=== PATIENT | male | born 1970 | race Two or more races ===

== ENCOUNTER 2019-05-06 12:41 | Emergency (ER) | payer OTHER ==
[~2019-05-06] VITALS: Ht 165.1 cm; Wt 89.8 kg
[~2019-05-06 12:41] MED LIST: DIOVAN40 MG; KETO10TA2 PO; TRAMADOL HCL-AP1 TAB PO
== END 2019-05-06 14:00 | disposition home or self-care (01) ==
LOC: ER 12:41
DX: M54.5 Low back pain (principal)

== ENCOUNTER 2019-05-19 14:05 | Outpatient (CLI) | payer OTHER | END 2019-05-19 14:20 | disposition home or self-care (01) | LOC: MRI 14:05 | DX: M54.5 Low back pain (principal) | CPT/HCPCS: 72148 ==

== ENCOUNTER 2020-11-09 15:19 | Emergency (ER) | payer OTHER ==
[~2020-11-09] VITALS: Ht 167.6 cm; Wt 86.2 kg
[2020-11-09] MEDS ORDERED: MICARDIS20 MG (15:43)
== END 2020-11-09 17:40 | disposition home or self-care (01) ==
LOC: ER 15:19
DX: S62.397A Other fracture of fifth metacarpal bone, left hand, initial encounter for closed fracture (principal); S61.422A Laceration with foreign body of left hand, initial encounter; G89.11 Acute pain due to trauma; M25.512 Pain in left shoulder; V49.88XA Car occupant (driver) (passenger) injured in other specified transport accidents, initial encounter; W22.11XA Striking against or struck by driver side automobile airbag, initial encounter; Y93.89 Activity, other specified; Y92.488 Other paved roadways as the place of occurrence of the external cause; Y99.8 Other external cause status

== ENCOUNTER 2020-11-12 11:03 | Outpatient (CLI) | payer OTHER ==
[~2020-11-12 11:03] MED LIST changes: +MICARDIS20 MG
== END 2020-11-12 11:06 | disposition home or self-care (01) ==
LOC: EKG 11:03
PROVIDERS: ATTEND Orthopaedic Surgery Hand Surgery
DX: I10 Essential (primary) hypertension (principal)

== ENCOUNTER 2020-11-16 06:20 | Day surgery (SDC) | payer OTHER | END 2020-11-16 13:15 | disposition home or self-care (01) | LOC: CIR.AMB 06:20 | PROVIDERS: ATTEND Orthopaedic Surgery Hand Surgery | DX: S62.337A Displaced fracture of neck of fifth metacarpal bone, left hand, initial encounter for closed fracture (principal); Z20.828 Contact with and (suspected) exposure to other viral communicable diseases ==

== ENCOUNTER → 2020-12-01 | Outpatient (CLI) | payer OTHER | END | disposition home or self-care (01) | LOC: RAD 10:51 | PROVIDERS: ATTEND Orthopaedic Surgery Hand Surgery | DX: M25.532 Pain in left wrist (principal) ==

== ENCOUNTER 2021-04-10 12:34 | Emergency (ER) | payer OTHER ==
[~2021-04-10] VITALS: Ht 175.3 cm; Wt 88.5 kg
== END 2021-04-10 15:27 | disposition home or self-care (01) ==
LOC: ER 12:34
DX: S42.291A Other displaced fracture of upper end of right humerus, initial encounter for closed fracture (principal); S40.021A Contusion of right upper arm, initial encounter; S50.01XA Contusion of right elbow, initial encounter; W18.39XA Other fall on same level, initial encounter; Y93.89 Activity, other specified; Y92.091 Bathroom in other non-institutional residence as the place of occurrence of the external cause; Y99.8 Other external cause status

== ENCOUNTER → 2021-04-11 10:03 | Outpatient (CLI) | payer OTHER | END | disposition home or self-care (01) | LOC: LAB 10:03 | PROVIDERS: ATTEND Orthopaedic Surgery | DX: D68.8 Other specified coagulation defects (principal); N39.0 Urinary tract infection, site not specified; D64.9 Anemia, unspecified; E88.9 Metabolic disorder, unspecified; A49.02 Methicillin resistant Staphylococcus aureus infection, unspecified site; E83.42 Hypomagnesemia; E03.9 Hypothyroidism, unspecified; Z13.1 Encounter for screening for diabetes mellitus; E55.9 Vitamin D deficiency, unspecified; Z03.818 Encounter for observation for suspected exposure to other biological agents ruled out ==

== ENCOUNTER 2021-04-12 15:08 | Day surgery (SDC) | payer OTHER | END 2021-04-12 21:30 | disposition home or self-care (01) | LOC: CIR.AMB 15:08 | PROVIDERS: ATTEND Orthopaedic Surgery | DX: S42.351A Displaced comminuted fracture of shaft of humerus, right arm, initial encounter for closed fracture (principal); S42.291A Other displaced fracture of upper end of right humerus, initial encounter for closed fracture; M75.41 Impingement syndrome of right shoulder; Z20.822 Contact with and (suspected) exposure to COVID-19 | CPT/HCPCS: 24516; 23412; 23130; C1776 ==

== ENCOUNTER → 2021-04-20 12:30 | Outpatient (CLI) | payer OTHER | END | disposition home or self-care (01) | LOC: RAD 12:30 | PROVIDERS: ATTEND Orthopaedic Surgery | DX: S42.351D Displaced comminuted fracture of shaft of humerus, right arm, subsequent encounter for fracture with routine healing (principal) ==

== ENCOUNTER 2021-05-03 12:46 | Outpatient (CLI) | payer OTHER | END 2021-05-03 15:38 | disposition home or self-care (01) | LOC: RAD 12:46 | PROVIDERS: ATTEND Orthopaedic Surgery | DX: M79.642 Pain in left hand (principal); M79.641 Pain in right hand ==

== ENCOUNTER 2021-07-12 11:46 | Outpatient (CLI) | payer OTHER | END 2021-07-12 11:53 | disposition home or self-care (01) | LOC: RAD 11:46 | PROVIDERS: ATTEND Orthopaedic Surgery | DX: S42.351D Displaced comminuted fracture of shaft of humerus, right arm, subsequent encounter for fracture with routine healing (principal) ==

== ENCOUNTER → 2021-08-08 13:07 | Outpatient (CLI) | payer OTHER | END | disposition home or self-care (01) | LOC: RAD 13:07 | PROVIDERS: ATTEND Orthopaedic Surgery | DX: S42.351D Displaced comminuted fracture of shaft of humerus, right arm, subsequent encounter for fracture with routine healing (principal) ==

== ENCOUNTER → 2021-08-23 11:46 | Outpatient (CLI) | payer OTHER | END | disposition home or self-care (01) | LOC: EDBD 11:46 → RAD 11:46 | PROVIDERS: ATTEND Orthopaedic Surgery | DX: S42.351D Displaced comminuted fracture of shaft of humerus, right arm, subsequent encounter for fracture with routine healing (principal) ==

== ENCOUNTER 2021-08-31 10:02 | Outpatient (CLI) | payer OTHER | END 2021-08-31 10:09 | disposition home or self-care (01) | LOC: EDBD 10:02 → LAB 10:02 | PROVIDERS: ATTEND Orthopaedic Surgery | DX: E55.9 Vitamin D deficiency, unspecified (principal); M85.88 Other specified disorders of bone density and structure, other site; E56.1 Deficiency of vitamin K ==

== ENCOUNTER 2021-11-23 11:28 | Outpatient (CLI) | payer OTHER | END 2021-11-23 12:00 | disposition home or self-care (01) | LOC: RAD 11:28 | PROVIDERS: ATTEND Orthopaedic Surgery | DX: S42.351D Displaced comminuted fracture of shaft of humerus, right arm, subsequent encounter for fracture with routine healing (principal) ==

== ENCOUNTER 2021-12-12 11:40 | Outpatient (CLI) | payer OTHER | END 2021-12-12 11:41 | disposition home or self-care (01) | LOC: RAD 11:40 | PROVIDERS: ATTEND Orthopaedic Surgery | DX: S42.351G Displaced comminuted fracture of shaft of humerus, right arm, subsequent encounter for fracture with delayed healing (principal) ==

== ENCOUNTER 2022-01-12 14:20 | Outpatient (CLI) | payer OTHER | END 2022-01-12 14:35 | disposition home or self-care (01) | LOC: RAD 14:20 | PROVIDERS: ATTEND Orthopaedic Surgery | DX: S42.351G Displaced comminuted fracture of shaft of humerus, right arm, subsequent encounter for fracture with delayed healing (principal) ==

== ENCOUNTER 2022-01-16 12:34 | Outpatient (CLI) | payer OTHER | END 2022-01-16 13:00 | disposition home or self-care (01) | LOC: TOM 12:34 | PROVIDERS: ATTEND Orthopaedic Surgery | DX: S42.351K Displaced comminuted fracture of shaft of humerus, right arm, subsequent encounter for fracture with nonunion (principal) ==

== ENCOUNTER 2022-02-01 08:31 | Outpatient (CLI) | payer OTHER | END 2022-02-01 15:57 | disposition home or self-care (01) | LOC: LAB 08:31 | PROVIDERS: ATTEND Orthopaedic Surgery | DX: D64.9 Anemia, unspecified (principal); D68.8 Other specified coagulation defects; E88.9 Metabolic disorder, unspecified; N39.0 Urinary tract infection, site not specified; A49.02 Methicillin resistant Staphylococcus aureus infection, unspecified site; E11.9 Type 2 diabetes mellitus without complications; Z76.89 Persons encountering health services in other specified circumstances; I10 Essential (primary) hypertension; I49.9 Cardiac arrhythmia, unspecified ==

== ENCOUNTER 2022-06-20 12:11 | Outpatient (CLI) | payer OTHER | END 2022-06-20 12:14 | disposition home or self-care (01) | LOC: LAB 12:11 | PROVIDERS: ATTEND Orthopaedic Surgery | DX: S42.351G Displaced comminuted fracture of shaft of humerus, right arm, subsequent encounter for fracture with delayed healing (principal); M25.521 Pain in right elbow ==

== ENCOUNTER 2022-08-24 10:50 | Outpatient (CLI) | payer OTHER | END 2022-08-24 11:30 | disposition home or self-care (01) | LOC: TOM 10:50 | PROVIDERS: ATTEND Orthopaedic Surgery | DX: S42.331K Displaced oblique fracture of shaft of humerus, right arm, subsequent encounter for fracture with nonunion (principal) ==

== ENCOUNTER 2022-12-12 16:05 | Outpatient (CLI) | payer OTHER | END 2022-12-12 16:07 | disposition home or self-care (01) | LOC: RAD 16:05 → LAB 16:05 | PROVIDERS: ATTEND Orthopaedic Surgery | DX: S42.351G Displaced comminuted fracture of shaft of humerus, right arm, subsequent encounter for fracture with delayed healing (principal) ==

== ENCOUNTER 2022-12-26 15:48 | Outpatient (CLI) | payer OTHER | END 2022-12-26 15:55 | disposition home or self-care (01) | LOC: RAD 15:48 | DX: S42.321K Displaced transverse fracture of shaft of humerus, right arm, subsequent encounter for fracture with nonunion (principal) ==

== ENCOUNTER → 2023-01-24 | Outpatient (CLI) | payer OTHER | END | disposition home or self-care (01) | LOC: RAD 08:42 | PROVIDERS: ATTEND Internal Medicine | DX: S42.321A Displaced transverse fracture of shaft of humerus, right arm, initial encounter for closed fracture (principal); I10 Essential (primary) hypertension ==

== ENCOUNTER 2023-04-06 14:53 | Outpatient (CLI) | payer OTHER | END 2023-04-06 14:54 | disposition home or self-care (01) | LOC: LAB 14:53 | PROVIDERS: ATTEND Orthopaedic Surgery | DX: S42.321D Displaced transverse fracture of shaft of humerus, right arm, subsequent encounter for fracture with routine healing (principal) ==

== ENCOUNTER 2023-05-14 14:21 | Outpatient (CLI) | payer OTHER | END 2023-05-14 14:22 | disposition home or self-care (01) | LOC: RAD 14:21 → LAB 14:21 | PROVIDERS: ATTEND Orthopaedic Surgery | DX: S42.321A Displaced transverse fracture of shaft of humerus, right arm, initial encounter for closed fracture (principal) ==

== ENCOUNTER → 2023-08-01 08:42 | Outpatient (CLI) | payer OTHER | END | disposition home or self-care (01) | LOC: RAD 08:42 | PROVIDERS: ATTEND Orthopaedic Surgery | DX: S42.321K Displaced transverse fracture of shaft of humerus, right arm, subsequent encounter for fracture with nonunion (principal) ==

== ENCOUNTER 2023-11-21 13:27 | Outpatient (CLI) | payer OTHER | END 2023-11-21 14:30 | disposition home or self-care (01) | LOC: RAD 13:27 | PROVIDERS: ATTEND Orthopaedic Surgery | DX: S42.301K Unspecified fracture of shaft of humerus, right arm, subsequent encounter for fracture with nonunion (principal) ==

== ENCOUNTER 2024-08-07 14:42 | Outpatient (CLI) | payer OTHER | END 2024-08-07 15:18 | disposition home or self-care (01) | LOC: RAD 14:42 | PROVIDERS: ATTEND Orthopaedic Surgery | DX: S42.321K Displaced transverse fracture of shaft of humerus, right arm, subsequent encounter for fracture with nonunion (principal) ==